=== PATIENT | female | born 1945 | race Hispanic/Latino ===

== ENCOUNTER 2017-06-26 16:44 | Emergency (ER) | payer OTHER, MEDICARE ==
[~2017-06-26 16:44] MED LIST: ASPI-1197 PO; CALC1TAB36 PO; HYDR25TA PO; MULT1TAB70 PO
[2017-06-26] MEDS ORDERED: ACETAMINOPHEN 325 MG TAB ONE (17:44)
== END 2017-06-26 19:07 | disposition home or self-care (01) ==
LOC: EDH 16:44
DX: T62.8X1A Toxic effect of other specified noxious substances eaten as food, accidental (unintentional), initial encounter (principal); R51 Headache; I10 Essential (primary) hypertension; Y92.098 Other place in other non-institutional residence as the place of occurrence of the external cause

== ENCOUNTER → 2017-07-10 | Outpatient (CLI) | payer OTHER, MEDICARE | END | disposition home or self-care (01) | LOC: RAH 09:04 | PROVIDERS: ATTEND Family Medicine | DX: Z12.31 Encounter for screening mammogram for malignant neoplasm of breast (principal) | CPT/HCPCS: 77067 ==

== ENCOUNTER → 2018-06-28 | Outpatient (CLI) | payer OTHER, MEDICARE | END | disposition home or self-care (01) | LOC: RAH 10:38 | PROVIDERS: ATTEND Family Medicine | DX: M51.37 Other intervertebral disc degeneration, lumbosacral region (principal); M47.816 Spondylosis without myelopathy or radiculopathy, lumbar region | CPT/HCPCS: 72100 ==

== ENCOUNTER → 2018-08-06 | Outpatient (CLI) | payer OTHER, MEDICARE | END | disposition home or self-care (01) | LOC: RAH 10:52 | PROVIDERS: ATTEND Family Medicine | DX: M48.061 Spinal stenosis, lumbar region without neurogenic claudication (principal); M47.26 Other spondylosis with radiculopathy, lumbar region | CPT/HCPCS: 72148 ==

== ENCOUNTER → 2018-08-25 | Outpatient (CLI) | payer OTHER, MEDICARE | END | disposition home or self-care (01) | LOC: RAH 12:23 | PROVIDERS: ATTEND Family Medicine | DX: M19.042 Primary osteoarthritis, left hand (principal); W19.XXXA Unspecified fall, initial encounter; Y93.89 Activity, other specified; Y92.89 Other specified places as the place of occurrence of the external cause; Y99.8 Other external cause status | CPT/HCPCS: 71100; 73130 ==

== ENCOUNTER 2019-10-10 08:36 | Inpatient (IN) | payer OTHER, MEDICARE ==
[~2019-10-10] VITALS: Ht 157.5 cm; Wt 76.2 kg
[~2019-10-10 08:36] MED LIST changes: +MULT-660 PO; -MULT1TAB70 PO
[2019-10-10 09:28] LABS: INR 0.96 (0.85-1.15); PARTIAL THROMBOPLASTIN TIME 27.1 SEC (26.3-35.5); PROTHROMBIN TIME 10.4 SEC (9.6-11.6)
[2019-10-10 09:29] LABS: ALBUMIN 4.1 g/dL (3.5-5.0); BILIRUBIN,TOTAL 0.3 mg/dL (0.2-1.0); CREATININE 0.9 mg/dL (0.5-1.5)
[2019-10-10 09:34] LABS: POTASSIUM 2.8 mmol/L (3.5-5.1)
[2019-10-10 09:36] LABS: BASOPHILS % (AUTO) 0.6 % (0.0-5.0); EOSINOPHILS % (AUTO) 1.5 % (0.0-8.0); HEMATOCRIT 39.1 % (36-48); LYMPHOCYTES % (AUTO) 28.7 % (21.0-51.0); MEAN CORPUSCULAR VOLUME 91.4 fL (79-99); MONOCYTES % (AUTO) 7.2 % (3.0-13.0); NEUTROPHILS % (AUTO) 61.8 % (40.0-77.0); PLATELET COUNT (AUTO) 263 K/uL (130-400); RED BLOOD CELL COUNT(AUTO) 4.28 MIL/uL (4.00-5.50); RED CELL DISTRIBUTION WIDTH 11.8 % (11.0-15.5); WHITE BLOOD COUNT (AUTO) 8.2 K/uL (4.8-10.8)
[2019-10-10] MEDS ORDERED: ASPIRIN 325 MG TABLET ONE (09:50)
[2019-10-10] MEDS ORDERED: POTASSIUM BICARB/CIT AC 25 MEQ TABLET.EFF ONE (09:51)
[2019-10-10 10:07] LABS: APPEARANCE,URINE Clear (CLEAR); BILIRUBIN,URINE Negative (NEGATIVE); COLOR,URINE Yellow (YELLOW); GLUCOSE, URINE (UA) Negative (NEGATIVE); KETONES,URINE Negative (NEGATIVE); LEUKOCYTE ESTERASE ,URINE Trace (NEGATIVE); NITRATE,URINE Negative (NEGATIVE); OCCULT BLOOD,URINE Small (NEGATIVE); PROTEIN,URINE Trace mg/dL (NEGATIVE); UROBILINOGEN,URINE 0.2 mg/dL (0.2-1.0)
[2019-10-10 10:16] LABS: AMPHET/METH SCREEN,URINE NEGATIVE (NEGATIVE); BARBITURATE SCREEN, URINE NEGATIVE (NEGATIVE); BENZODIAZEPINES SCREEN,URINE NEGATIVE (NEGATIVE); CANNABINOID SCREEN,URINE NEGATIVE (NEGATIVE); COCAINE SCREEN,URINE NEGATIVE (NEGATIVE); OPIATE SCREEN,URINE NEGATIVE (NEGATIVE); PHENCYCLIDINE SCREEN,URINE NEGATIVE (NEGATIVE)
[2019-10-10 10:30] LABS: BACTERIA,URINE Few /HPF (None Seen); RBC,URINE 0-1 /HPF (0-1); SQUAMOUS EPITHELIAL CELL,UR Rare /HPF (0-2); WBC,URINE 0-1 /HPF (0-1)
[2019-10-10] MEDS ORDERED: LACTULOSE 20 GM/30 ML UDCUP PO PRN (11:15)
[2019-10-10] MEDS ORDERED: ZOLPIDEM TARTRATE 5 MG TAB PO PRN (11:15)
[2019-10-10] MEDS ORDERED: ONDANSETRON HCL 4 MG/2 ML VIAL IV PRN (11:15)
[2019-10-10] MEDS ORDERED: DiphenhydrAMINE HCL 50 MG/ML VIAL IV PRN (11:15)
[2019-10-10] MEDS ORDERED: MAG HYDROX/AL HYDROX/SIMETH ES 30 ML SUSP UDCUP PO PRN (11:15)
[2019-10-10] MEDS ORDERED: NITROGLYCERIN 0.4 MG SL TAB SL PRN (11:15)
[2019-10-10] MEDS ORDERED: MAGNESIUM 2GM PREMIX 50ML 50 ML IV PRN (11:15)
[2019-10-10] MEDS ORDERED: DIPHENHYDRAMINE HCL 25 MG CAPSULE PO PRN (11:15)
[2019-10-10] MEDS ORDERED: LORAZEPAM 2 MG/ML 1 ML VIAL IVP PRN (11:15)
[2019-10-10] MEDS ORDERED: POTASSIUM CHLORIDE 20MEQ/100ML 100 ML IV PRN ×2 (11:15→15:00)
[2019-10-10] MEDS ORDERED: MORPHINE SULFATE 2 MG/ML 1ML SYG IV PRN (11:15)
[2019-10-10] MEDS ORDERED: ACETAMINOPHEN 325 MG TAB PO PRN ×2 (11:15)
[2019-10-10] MEDS ORDERED: HYDRALAZINE HCL 20 MG/ML VIAL IV PRN (11:15)
[2019-10-10] MEDS ORDERED: GUAIFENESIN-DM 200/20 MG 10 ML PO PRN (11:15)
[2019-10-10] MEDS ORDERED: LIDOCAINE HCL-MPF 1% 2ML VIAL IV PRN ×2 (11:15→15:00)
[2019-10-10] MEDS: SODIUM CHLORIDE 0.9% 1000ML 1,000 ML IV SCH (11:30)
--- NOTE | 2019-10-10 11:50 | NUR ---
DYSPHAGIA EVAL COMPLETED. NO S/S OF ASPIRATION. RECOMMEND REGULAR SOLIDS, THIN LIQUIDS, PILLS WHOLE WITH LIQUIDS. FAST FOOD TEAM MEMBER COORDINATED CARE AND RECOMMENDATIONS WITH NURSE AIDA. Addendum: 10/10/[address] [facility]ERRE POE Amended: Links added.
[2019-10-10 12:23] VITALS: BP 158/84
[2019-10-10 14:46] LABS: MAGNESIUM 1.9 mg/dL (1.80-2.40); POTASSIUM 3.4 mmol/L (3.5-5.1)
[2019-10-10] MEDS ORDERED: POTASSIUM CHLORIDE 10% ELIXIR 20 MEQ/15 ML UDCUP PO PRN (15:00)
[2019-10-10 15:42] VITALS: BP 148/86
[2019-10-10] MEDS: POTASSIUM CHLORIDE 20 MEQ ERTAB PO PRN ×2 (17:08→20:01)
[2019-10-10 19:53] VITALS: BP 134/78
[2019-10-10] MEDS: FAMOTIDINE 20MG TAB 20 MG TAB PO NR (19:54)
[2019-10-10] MEDS: FAMOTIDINE/PF 20 MG/2 ML VIAL IV SCH (21:00)
[2019-10-10 23:43] VITALS: BP 138/71
[2019-10-11] MEDS: SODIUM CHLORIDE 0.9% 1000ML 1,000 ML IV SCH (00:21)
[2019-10-11 03:59] VITALS: BP 106/57
[2019-10-11 05:31] LABS: BASOPHILS % (AUTO) 0.8 % (0.0-5.0); EOSINOPHILS % (AUTO) 2.3 % (0.0-8.0); HEMATOCRIT 38.2 % (36-48); LYMPHOCYTES % (AUTO) 32.2 % (21.0-51.0); MEAN CORPUSCULAR HEMOGLOBIN 31.1 pg (27.0-33.0); MEAN CORPUSCULAR HGB CONC 33.5 g/dL (32.0-36.0); MEAN CORPUSCULAR VOLUME 92.7 fL (79-99); MONOCYTES % (AUTO) 8.2 % (3.0-13.0); NEUTROPHILS % (AUTO) 56.2 % (40.0-77.0); PLATELET COUNT (AUTO) 256 K/uL (130-400); RED BLOOD CELL COUNT(AUTO) 4.12 MIL/uL (4.00-5.50); RED CELL DISTRIBUTION WIDTH 11.9 % (11.0-15.5); WHITE BLOOD COUNT (AUTO) 7.7 K/uL (4.8-10.8)
[2019-10-11 05:59] LABS: ALBUMIN 3.6 g/dL (3.5-5.0); BILIRUBIN,TOTAL 0.4 mg/dL (0.2-1.0); CREATININE 0.8 mg/dL (0.5-1.5); MAGNESIUM 1.9 mg/dL (1.80-2.40); POTASSIUM 4.3 mmol/L (3.5-5.1); THYROID STIMULATING HORMONE 2.99 uIU/mL (0.36-3.74); TOTAL PROTEIN, SERUM 7.1 g/dL (6.0-8.3)
[2019-10-11 06:23] LABS: HEMOGLOBIN A1C 5.9 % (4.0-6.0)
--- NOTE | 2019-10-11 07:30 | NUR ---
NOTE AAOX3. DENIES PAIN OR DISCOMFORT. NO NUMBNESS OR TINGLING REPORTED. NO ASYMMETRICAL WEAKNESS REPORTED OR NOTED. SHE CAME IN WITH C/O LEFT ARM NUMBNESS AND SHE HAS H/O TIA. SHE IS PENDING RESULTS FROM 2D ECHO AND ALSO CT ANGIOGRAM HEAD AND NECK. PENDING DR HALEY CONSULT WELL.
[2019-10-11 07:33] VITALS: BP 139/81
[2019-10-11] MEDS ORDERED: IOHEXOL-350 75 ML VIAL IV ONE (08:02)
[2019-10-11] MEDS: FAMOTIDINE/PF 20 MG/2 ML VIAL IV SCH (08:26)
[2019-10-11] MEDS: FAMOTIDINE 20MG TAB 20 MG TAB PO NR (08:43)
[2019-10-11] MEDS ORDERED: ASPIRIN 81MG TAB.CHEW PO SCH (09:00)
[2019-10-11] MEDS ORDERED: ASPIRIN 325 MG TABLET PO SCH (09:00)
--- NOTE | 2019-10-11 10:55 | NUR ---
FOLLOW UP COMPLETED Pt TOLERATING DIET RECOMMENDATION WITH NO S/S OF ASPIRATION. GLAZE HANDLER COORDINATED WITH NURSE GRAY. Addendum: 10/11/[address] [facility] Amended: Links added.
[2019-10-11 11:05] VITALS: BP 133/74
--- NOTE | 2019-10-11 11:20 | NUR ---
note DR HALEY SAW THE PATIENT FOR CONSULT REGARDING EFT ARM NUMBNESS AND HE GAVE RECOMMENDATIONS TO HAVE CARDIOLOGY CONSULT DUE TO ABNORMAL RESULTS FROM 2D ECHO.
--- NOTE | 2019-10-11 12:10 | NUR ---
NOTE ANGEL WITH DR GRIGSBY CAME IN FOR THE CONSULT. PATIENT HAS SEEN DR GRIGSBY IN THE PAST. SHE REMAINS ASYMPTOMATIC. THERE IS RECOMMENDATIONS FOR MEDICAL MANAGEMENT AND CONSULT WITH DR ZIMMERMAN UPON DISCHARGE BUT FIRST HEAR RECOMMENDATIONS FROM CARDIOLOGY REGARDING ATRIAL SEPTAL ANEURYSM AND PFO.
--- NOTE | 2019-10-11 14:37 | NUR ---
CM NOTE/IA MEET WITH PATIENT IN ROOM. PER PATIENT, LIVES ALONE, INDEPENDENT WITH ADLS, HAS WALKER AND WHEELCHAIR IN USE, HAS PROVIDER 3HR PER DAY AND FEELS SAFE TO RETURN HOME ONCE DISCHARGED FROM HOSPITAL. Addendum: 10/11/19 at 1447 by TRACEE MABRY RN CM Amended: Links added.
[2019-10-11 15:54] VITALS: BP 152/82
--- NOTE | 2019-10-11 16:29 | NUR ---
[id number] patient signed IM Letter, I faxed IM Letter to [phone] and placed in chart under consent tab.
--- NOTE | 2019-10-11 17:30 | NUR ---
NOTE DISCHARGE INSTRUCTIONS GIVEN TO PATIENT AT THIS TIME. SHE VERBALIZED UNDERSTANDING. I ALSO SPOKE TO DAUGHTER ON TELEPHONE AND EXPLAINED WHAT DOCTORS EXPLAINED O HER WAS THE PROBLEM AD WHAT THE PLAN IS FOR WHEN SHE LEAVES.
[2019-10-11] MEDS ORDERED: ATORVASTATIN CALCIUM 20 MG TABLET PO SCH (21:00)
[2019-10-11] MEDS ORDERED: APIXABAN 5 MG TABLET PO SCH (21:00)
== END 2019-10-11 17:40 | disposition home or self-care (01) | DRG 69 ==
LOC: EDH 08:36 → EDHIP 11:01 → 3BH 11:58
PROVIDERS: ADMIT Internal Medicine; ATTEND Internal Medicine
DX: G45.9 Transient cerebral ischemic attack, unspecified (principal); Q21.1 Atrial septal defect; I25.3 Aneurysm of heart; I10 Essential (primary) hypertension; R29.702 NIHSS score 2; Z91.14 Patient's other noncompliance with medication regimen; I73.9 Peripheral vascular disease, unspecified; Z86.73 Personal history of transient ischemic attack (TIA), and cerebral infarction without residual deficits; Z90.49 Acquired absence of other specified parts of digestive tract; Z82.3 Family history of stroke; Z88.8 Allergy status to other drugs, medicaments and biological substances
CPT/HCPCS: 36415; 70450; 70496; 70498; 70551; 71045; 80053; 80061; 80305; 81001; 82140; 82550; 82948; 83036; 83721; 83735; 84132; 84439; 84443; 84480; 84484; 85025; 85610; 85651; 85730; 86140; 92610; 93005; 93306; 93356; 93880; G0378; Q9967

== ENCOUNTER 2019-10-21 14:23 | Emergency (ER) | payer OTHER, MEDICARE ==
[2019-10-21] MEDS ORDERED: DEXAMETHASONE SOD PHOSPHATE 4 MG/ML 1ML VIAL ONE (15:57)
[2019-10-21] MEDS ORDERED: LIDOCAINE 5% TOPICAL PATCH TP ONE (15:57)
== END 2019-10-21 16:37 | disposition home or self-care (01) ==
LOC: EDH 14:23
DX: M25.561 Pain in right knee (principal); M17.11 Unilateral primary osteoarthritis, right knee; I10 Essential (primary) hypertension; Z90.49 Acquired absence of other specified parts of digestive tract
CPT/HCPCS: 73562; 96372; 99283; J1100

== ENCOUNTER → 2020-04-23 | Outpatient (CLI) | payer OTHER, MEDICARE | END | disposition home or self-care (01) | LOC: RAH 09:41 | PROVIDERS: ATTEND Family Medicine | DX: Z12.31 Encounter for screening mammogram for malignant neoplasm of breast (principal) | CPT/HCPCS: 77067 ==

== ENCOUNTER → 2020-08-27 | Outpatient (CLI) | payer OTHER, MEDICARE | END | disposition home or self-care (01) | LOC: RAH 08:29 | PROVIDERS: ATTEND Internal Medicine Cardiovascular Disease | DX: I25.10 Atherosclerotic heart disease of native coronary artery without angina pectoris (principal) | CPT/HCPCS: 93306; 93356 ==

== ENCOUNTER → 2021-01-04 | Outpatient (CLI) | payer OTHER, MEDICARE | END | disposition home or self-care (01) | LOC: LAB 11:05 | PROVIDERS: ATTEND Family Medicine | DX: K59.00 Constipation, unspecified (principal) | CPT/HCPCS: 74018 ==

== ENCOUNTER → 2021-01-17 | Outpatient (CLI) | payer OTHER, MEDICARE | END | disposition home or self-care (01) | LOC: RAH 09:28 | PROVIDERS: ATTEND Family Medicine | DX: R31.9 Hematuria, unspecified (principal) | CPT/HCPCS: 76770 ==

== ENCOUNTER 2021-08-06 12:14 | Observation (INO) | payer OTHER, MEDICARE ==
[~2021-08-06] VITALS: Ht 152.4 cm; Wt 73.8 kg
[2021-08-06 12:53] LABS: BASOPHILS % (AUTO) 0.7 % (0.0-5.0); EOSINOPHILS % (AUTO) 1.3 % (0.0-8.0); LYMPHOCYTES % (AUTO) 38.8 % (21.0-51.0); MEAN CORPUSCULAR HEMOGLOBIN 33.6 pg (27.0-33.0); MEAN CORPUSCULAR HGB CONC 34.9 g/dL (32.0-36.0); MEAN CORPUSCULAR VOLUME 96.3 fL (79-99); MONOCYTES % (AUTO) 8.1 % (3.0-13.0); NEUTROPHILS % (AUTO) 50.8 % (40.0-77.0); PLATELET COUNT (AUTO) 258 K/uL (130-400); RED BLOOD CELL COUNT(AUTO) 4.05 MIL/uL (4.00-5.50); RED CELL DISTRIBUTION WIDTH 12.6 % (11.0-15.5); WHITE BLOOD COUNT (AUTO) 9.1 K/uL (4.8-10.8)
[2021-08-06 13:06] LABS: CREATININE 0.9 mg/dL (0.5-1.5)
[2021-08-06 13:16] LABS: ALBUMIN 3.9 g/dL (3.5-5.0); BILIRUBIN,TOTAL 0.4 mg/dL (0.2-1.0); TOTAL PROTEIN, SERUM 7.9 g/dL (6.0-8.3)
[2021-08-06 14:00] LABS: APPEARANCE,URINE CLEAR (CLEAR); BILIRUBIN,URINE NEGATIVE (NEGATIVE); COLOR,URINE YELLOW (YELLOW); GLUCOSE, URINE (UA) NEGATIVE (NEGATIVE); KETONES,URINE NEGATIVE (NEGATIVE); LEUKOCYTE ESTERASE ,URINE NEGATIVE (NEGATIVE); NITRATE,URINE NEGATIVE (NEGATIVE); OCCULT BLOOD,URINE TRACE-INTACT (NEGATIVE); PH,URINE 6.5 (5.0-8.0); PROTEIN,URINE NEGATIVE (NEGATIVE); UROBILINOGEN,URINE 0.2 mg/dL (0.2-1.0)
[2021-08-06] MEDS ORDERED: LORAZEPAM 2 MG/ML 1 ML VIAL IVP ONE (14:00)
[2021-08-06] MEDS ORDERED: 0.9%NACL 1000ML 1,000 ML IV ONE (14:00)
[2021-08-06 14:04] LABS: BACTERIA,URINE Rare /HPF (None Seen); RBC,URINE 0-1 /HPF (0-1); SQUAMOUS EPITHELIAL CELL,UR 0-2 /HPF (0-2); WBC,URINE 0-1 /HPF (0-1)
[2021-08-06] MEDS ORDERED: POTASSIUM CHLORIDE 10% ELIXIR 20 MEQ/15 ML UDCUP PO ONE (14:30)
[2021-08-06] MEDS ORDERED: ASPIRIN 81MG CHEW TAB PO ONE (15:00)
[2021-08-06] MEDS ORDERED: POTASSIUM CHLORIDE 10% ELIXIR 20 MEQ/15 ML UDCUP PO PRN (15:30)
[2021-08-06] MEDS ORDERED: KCL 20 MEQ ERTAB PO PRN (15:30)
[2021-08-06] MEDS ORDERED: ONDANSETRON 4MG INJ IVP PRN (15:30)
[2021-08-06] MEDS ORDERED: LIDOCAINE HCL-MPF 1% 2ML VIAL IV PRN ×2 (15:30)
[2021-08-06] MEDS ORDERED: CLONIDINE HCL 0.1 MG TABLET PO PRN (15:30)
[2021-08-06] MEDS ORDERED: ACETAMINOPHEN 325 MG TAB PO PRN (15:30)
[2021-08-06] MEDS ORDERED: LACTULOSE 20 GM/30 ML UDCUP PO PRN (15:30)
[2021-08-06] MEDS ORDERED: POTASSIUM CHLORIDE 20MEQ/100ML 100 ML IV PRN ×2 (15:30)
[2021-08-06] MEDS ORDERED: ASPIRIN 325MG TAB PO ONE (15:30)
[2021-08-06] MEDS ORDERED: TEMAZEPAM 15 MG CAPSULE PO PRN (15:30)
[2021-08-06] MEDS ORDERED: DEXTROSE 50%-WATER 50 ML DISP.SYRIN IV PRN (15:30)
[2021-08-06] MEDS ORDERED: ACETAMINOPHEN 650 MG SUPPOSITORY RC PRN (15:30)
[2021-08-06] MEDS ORDERED: MORPHINE 2 MG SYG IVP PRN (15:30)
[2021-08-06] MEDS ORDERED: GLUCAGON 1MG KIT 1 MG ML IM PRN (15:30)
[2021-08-06] MEDS ORDERED: HYDRALAZINE 20MG/ML VIAL IV PRN (15:30)
[2021-08-06] MEDS: INSULIN HUMULIN R 100 UNIT/ML 3ML SQ SCH ×2 (16:30→20:51)
[2021-08-06] MEDS ORDERED: MULTIVITAMIN TABLET PO SCH (19:00)
[2021-08-06] MEDS ORDERED: DOCUSATE SODIUM 100 MG CAP PO PRN (19:00)
[2021-08-06] MEDS: CALCIUM CARB PO SCH (21:00)
[2021-08-06] MEDS: LACT PO SCH (21:00)
[2021-08-06] MEDS: VITAMIN D3 PO SCH (21:00)
[2021-08-06] MEDS: SIMVASTATIN 20 MG TABLET PO SCH (21:23)
[2021-08-06 21:48] LABS: CREATINE KINASE, TOTAL 88 U/L (21-232); MYOGLOBIN 55 ng/mL (10-92)
[2021-08-07 05:05] VITALS: BP 153/83
[2021-08-07 05:52] LABS: BASOPHILS % (AUTO) 0.5 % (0.0-5.0); EOSINOPHILS % (AUTO) 1.9 % (0.0-8.0); HEMATOCRIT 40.2 % (36-48); LYMPHOCYTES % (AUTO) 27.8 % (21.0-51.0); MEAN CORPUSCULAR HEMOGLOBIN 33.5 pg (27.0-33.0); MEAN CORPUSCULAR HGB CONC 34.1 g/dL (32.0-36.0); MEAN CORPUSCULAR VOLUME 98.3 fL (79-99); MONOCYTES % (AUTO) 7.6 % (3.0-13.0); NEUTROPHILS % (AUTO) 61.9 % (40.0-77.0); PLATELET COUNT (AUTO) 229 K/uL (130-400); RED BLOOD CELL COUNT(AUTO) 4.09 MIL/uL (4.00-5.50); RED CELL DISTRIBUTION WIDTH 12.8 % (11.0-15.5); WHITE BLOOD COUNT (AUTO) 8.8 K/uL (4.8-10.8)
[2021-08-07 06:16] LABS: B-TYPE NATRIURETIC PEPTIDE 103 pg/mL (0-100)
[2021-08-07 06:17] LABS: CREATININE 0.7 mg/dL (0.5-1.5); MAGNESIUM 1.9 mg/dL (1.80-2.40); PHOSPHORUS 3.2 mg/dL (2.5-4.9); POTASSIUM 3.8 mmol/L (3.5-5.1); THYROID STIMULATING HORMONE 3.55 uIU/mL (0.36-3.74)
[2021-08-07] MEDS: INSULIN HUMULIN R 100 UNIT/ML 3ML SQ SCH ×4 (06:28→20:14)
[2021-08-07 08:00] VITALS: BP 140/73
[2021-08-07] MEDS: LACT PO SCH ×2 (09:00→20:14)
[2021-08-07] MEDS: CALCIUM CARB PO SCH ×2 (09:00→20:14)
[2021-08-07] MEDS: ENOXAPARIN SODIUM 40 MG/0.4 ML SYRINGE SQ SCH (09:00)
[2021-08-07] MEDS: VITAMIN D3 PO SCH ×2 (09:00→20:14)
[2021-08-07] MEDS: PANTOPRAZOLE 40 MG TAB DR PO SCH (09:00)
[2021-08-07] MEDS: HYDROCHLOROTHIAZIDE 25 MG TABLET PO SCH (09:39)
[2021-08-07] MEDS: ASPIRIN 81MG CHEW TAB PO SCH (09:41)
[2021-08-07 12:00] VITALS: BP 154/81
[2021-08-07 15:52] VITALS: BP 165/79
[2021-08-07 17:09] LABS: HEMOGLOBIN A1C 5.8 % (4.0-6.0)
[2021-08-07] MEDS: METOPROLOL SUCCINATE 50 MG TAB.SR.24H PO SCH (18:48)
[2021-08-07 20:08] VITALS: BP 165/81
[2021-08-07] MEDS: SIMVASTATIN 20 MG TABLET PO SCH (20:13)
[2021-08-07 23:54] VITALS: BP 124/68
[2021-08-08 04:08] VITALS: BP 142/77
[2021-08-08] MEDS: INSULIN HUMULIN R 100 UNIT/ML 3ML SQ SCH ×2 (06:16→11:30)
[2021-08-08 08:18] VITALS: BP 155/80
[2021-08-08] MEDS: ENOXAPARIN SODIUM 40 MG/0.4 ML SYRINGE SQ SCH (08:30)
[2021-08-08] MEDS: PANTOPRAZOLE 40 MG TAB DR PO SCH (08:30)
[2021-08-08] MEDS: CALCIUM CARB PO SCH (09:00)
[2021-08-08] MEDS: VITAMIN D3 PO SCH (09:00)
[2021-08-08] MEDS: LACT PO SCH (09:00)
[2021-08-08] MEDS ORDERED: LOSARTAN 25 MG TABLET PO SCH (09:00)
[2021-08-08] MEDS: METOPROLOL SUCCINATE 50 MG TAB.SR.24H PO SCH (09:55)
[2021-08-08] MEDS: HYDROCHLOROTHIAZIDE 25 MG TABLET PO SCH (09:55)
[2021-08-08] MEDS: ASPIRIN 81MG CHEW TAB PO SCH (09:56)
[2021-08-08 12:05] VITALS: BP 133/72
== END 2021-08-08 13:15 | disposition home or self-care (01) ==
LOC: EDH 12:14 → EDHIP 15:22 → 4AH 08-07 05:08
PROVIDERS: ADMIT Internal Medicine Critical Care Medicine; ATTEND Internal Medicine Critical Care Medicine
DX: I16.0 Hypertensive urgency (principal); Z20.822 Contact with and (suspected) exposure to COVID-19; I16.1 Hypertensive emergency; I10 Essential (primary) hypertension; R41.3 Other amnesia; Q21.1 Atrial septal defect; E66.9 Obesity, unspecified; E78.5 Hyperlipidemia, unspecified; I45.10 Unspecified right bundle-branch block; I48.92 Unspecified atrial flutter; G93.89 Other specified disorders of brain; R79.89 Other specified abnormal findings of blood chemistry; R42 Dizziness and giddiness; Z79.82 Long term (current) use of aspirin; Z91.19 Patient's noncompliance with other medical treatment and regimen; Z86.73 Personal history of transient ischemic attack (TIA), and cerebral infarction without residual deficits; Z79.899 Other long term (current) drug therapy
CPT/HCPCS: 36415 ×2; 70450; 70551; 80048; 80053; 80061; 81001; 82550 ×3; 82948 ×6; 83036; 83735; 83874 ×3; 83880; 84100; 84443; 84484 ×4; 85025 ×2; 87635; 92610; 93005; 93306; 93880; 96360; 97161; 99285; G0378 ×43; J2060; J1650

== ENCOUNTER 2021-09-06 11:18 | Emergency (ER) | payer OTHER, MEDICARE ==
[~2021-09-06] VITALS: Ht 144.8 cm; Wt 63.5 kg
[2021-09-06 11:52] LABS: BASOPHILS % (AUTO) 0.4 % (0.0-5.0); EOSINOPHILS % (AUTO) 0.8 % (0.0-8.0); HEMATOCRIT 38.8 % (36-48); LYMPHOCYTES % (AUTO) 15.5 % (21.0-51.0); MEAN CORPUSCULAR HEMOGLOBIN 33.4 pg (27.0-33.0); MEAN CORPUSCULAR HGB CONC 34.5 g/dL (32.0-36.0); MEAN CORPUSCULAR VOLUME 96.8 fL (79-99); MONOCYTES % (AUTO) 5.3 % (3.0-13.0); NEUTROPHILS % (AUTO) 77.7 % (40.0-77.0); PLATELET COUNT (AUTO) 223 K/uL (130-400); RED BLOOD CELL COUNT(AUTO) 4.01 MIL/uL (4.00-5.50); RED CELL DISTRIBUTION WIDTH 12.7 % (11.0-15.5); WHITE BLOOD COUNT (AUTO) 10.3 K/uL (4.8-10.8)
[2021-09-06 12:00] LABS: CREATININE 0.9 mg/dL (0.5-1.5); POTASSIUM 3.7 mmol/L (3.5-5.1)
[2021-09-06 12:07] LABS: ALBUMIN 3.9 g/dL (3.5-5.0); BILIRUBIN,TOTAL 0.5 mg/dL (0.2-1.0); TOTAL PROTEIN, SERUM 7.9 g/dL (6.0-8.3)
[2021-09-06 12:10] LABS: APPEARANCE,URINE Clear (CLEAR); BILIRUBIN,URINE Negative (NEGATIVE); COLOR,URINE Yellow (YELLOW); GLUCOSE, URINE (UA) Negative (NEGATIVE); KETONES,URINE Negative (NEGATIVE); LEUKOCYTE ESTERASE ,URINE Negative (NEGATIVE); NITRATE,URINE Negative (NEGATIVE); OCCULT BLOOD,URINE Nonhemolyzed Trace (NEGATIVE); PROTEIN,URINE POS 2+ mg/dL (NEGATIVE); UROBILINOGEN,URINE 0.2 mg/dL (0.2-1.0)
[2021-09-06 12:30] LABS: BACTERIA,URINE Few /HPF (None Seen); SQUAMOUS EPITHELIAL CELL,UR 0-2 /HPF (0-2); WBC,URINE 0-1 /HPF (0-1)
[2021-09-06 15:42] VITALS: BP 135/56
== END 2021-09-06 15:46 | disposition home or self-care (01) ==
LOC: EDH 11:18
DX: R07.89 Other chest pain (principal); R77.8 Other specified abnormalities of plasma proteins; R11.0 Nausea; E78.00 Pure hypercholesterolemia, unspecified; I11.9 Hypertensive heart disease without heart failure; K21.9 Gastro-esophageal reflux disease without esophagitis; M19.90 Unspecified osteoarthritis, unspecified site; Z79.82 Long term (current) use of aspirin; Z88.5 Allergy status to narcotic agent; Z88.8 Allergy status to other drugs, medicaments and biological substances; Z90.49 Acquired absence of other specified parts of digestive tract
CPT/HCPCS: 36415; 71045; 74018; 80053; 81001; 83690; 84484; 85025; 93005

== ENCOUNTER 2022-02-05 15:38 | Observation (INO) | payer OTHER, MEDICARE ==
[~2022-02-05] VITALS: Ht 152.4 cm; Wt 73.4 kg
[2022-02-05 16:38] LABS: BASOPHILS % (AUTO) 0.7 % (0.0-5.0); HEMATOCRIT 38.1 % (36-48); LYMPHOCYTES % (AUTO) 31.1 % (21.0-51.0); MEAN CORPUSCULAR HEMOGLOBIN 33.8 pg (27.0-33.0); MEAN CORPUSCULAR HGB CONC 35.2 g/dL (32.0-36.0); MEAN CORPUSCULAR VOLUME 96.2 fL (79-99); MONOCYTES % (AUTO) 7.2 % (3.0-13.0); NEUTROPHILS % (AUTO) 58.7 % (40.0-77.0); PLATELET COUNT (AUTO) 249 K/uL (130-400); RED BLOOD CELL COUNT(AUTO) 3.96 MIL/uL (4.00-5.50); RED CELL DISTRIBUTION WIDTH 13.8 % (11.0-15.5); WHITE BLOOD COUNT (AUTO) 8.9 K/uL (4.8-10.8)
[2022-02-05] MEDS ORDERED: PANTOPRAZOLE 40 MG/VIAL IVP STA (16:46)
[2022-02-05 16:50] LABS: APPEARANCE,URINE CLEAR (CLEAR); BILIRUBIN,URINE NEGATIVE (NEGATIVE); COLOR,URINE YELLOW (YELLOW); GLUCOSE, URINE (UA) NEGATIVE (NEGATIVE); KETONES,URINE NEGATIVE (NEGATIVE); LEUKOCYTE ESTERASE ,URINE TRACE (NEGATIVE); NITRATE,URINE NEGATIVE (NEGATIVE); OCCULT BLOOD,URINE SMALL (NEGATIVE); PROTEIN,URINE 30 mg/dL (NEGATIVE); UROBILINOGEN,URINE 0.2 mg/dL (0.2-1.0)
[2022-02-05 17:06] LABS: BACTERIA,URINE Few /HPF (None Seen); SQUAMOUS EPITHELIAL CELL,UR Few /HPF (0-2)
[2022-02-05] MEDS ORDERED: ASPIRIN 325MG EC TAB PO STA (17:18)
[2022-02-05 17:20] LABS: CREATININE 0.9 mg/dL (0.5-1.5); POTASSIUM 3.3 mmol/L (3.5-5.1)
[2022-02-05 17:30] LABS: ALBUMIN 3.8 g/dL (3.5-5.0); TOTAL PROTEIN, SERUM 7.6 g/dL (6.0-8.3)
[2022-02-05] MEDS ORDERED: ARTIFICAL TEARS SOL 15 ML OU PRN (18:30)
[2022-02-05] MEDS ORDERED: TEMAZEPAM 15 MG CAPSULE PO PRN (18:30)
[2022-02-05] MEDS ORDERED: DOCUSATE SODIUM 100 MG CAP PO PRN (18:30)
[2022-02-05] MEDS ORDERED: HYDRALAZINE 20MG/ML VIAL IV PRN (18:30)
[2022-02-05] MEDS ORDERED: ACETAMINOPHEN 650 MG SUPPOSITORY RC PRN (18:30)
[2022-02-05] MEDS ORDERED: ONDANSETRON 4MG INJ IVP PRN (18:30)
[2022-02-05] MEDS ORDERED: HYDROCODONE/ACETAMINOPHEN 5/325 MG TAB PO PRN (18:30)
[2022-02-05] MEDS ORDERED: LACTULOSE 20 GM/30 ML UDCUP PO PRN (18:30)
[2022-02-05] MEDS ORDERED: MORPHINE 2 MG SYG IVP PRN (19:00)
[2022-02-05] MEDS: INSULIN HUMULIN R 100 UNIT/ML 3ML SQ SCH (21:00)
[2022-02-05] MEDS ORDERED: IOHEXOL 350 MG/ML 100ML INFUS..BTL IV ONE (21:01)
[2022-02-06] VITALS (7 sets, daily range): BP systolic 117–151; BP diastolic 63–98
[2022-02-06] MEDS: INSULIN HUMULIN R 100 UNIT/ML 3ML SQ SCH ×4 (07:30→20:48)
[2022-02-06 07:40] LABS: BASOPHILS % (AUTO) 0.6 % (0.0-5.0); EOSINOPHILS % (AUTO) 2.7 % (0.0-8.0); HEMATOCRIT 39.4 % (36-48); LYMPHOCYTES % (AUTO) 23.1 % (21.0-51.0); MEAN CORPUSCULAR HEMOGLOBIN 33.8 pg (27.0-33.0); MEAN CORPUSCULAR VOLUME 96.6 fL (79-99); NEUTROPHILS % (AUTO) 64.2 % (40.0-77.0); PLATELET COUNT (AUTO) 238 K/uL (130-400); RED BLOOD CELL COUNT(AUTO) 4.08 MIL/uL (4.00-5.50); RED CELL DISTRIBUTION WIDTH 13.9 % (11.0-15.5); WHITE BLOOD COUNT (AUTO) 8.1 K/uL (4.8-10.8)
[2022-02-06] MEDS: PANTOPRAZOLE 40 MG TAB DR PO SCH (08:13)
[2022-02-06] MEDS: ASPIRIN 81MG CHEW TAB PO SCH (08:16)
[2022-02-06] MEDS: ENOXAPARIN SODIUM 30 MG/0.3 ML SQ SCH (08:16)
[2022-02-06 08:29] LABS: MAGNESIUM 2.1 mg/dL (1.80-2.40); PHOSPHORUS 4.3 mg/dL (2.5-4.9); POTASSIUM 3.5 mmol/L (3.5-5.1); THYROID STIMULATING HORMONE 3.42 uIU/mL (0.36-3.74)
[2022-02-06] MEDS ORDERED: ZOSYN 3.375GM +NS 50ML IV SCH (10:30)
[2022-02-06 10:53] LABS: THYROID STIMULATING HORMONE 2.13 uIU/mL (0.36-3.74)
[2022-02-06 10:56] LABS: CRP QUANTITATIVE < 2.00 mg/L (0.00-9.0)
[2022-02-06] MEDS: ACETAMINOPHEN 325 MG TAB PO PRN (19:02)
[2022-02-06] MEDS: ZOSYN 3.375GM +NS 50ML IV SCH (20:32)
[2022-02-06] MEDS: LISINOPRIL 10 MG TABLET PO SCH (20:48)
[2022-02-07 03:28] VITALS: BP 142/90
[2022-02-07] MEDS: ZOSYN 3.375GM +NS 50ML IV SCH (05:28)
[2022-02-07 05:43] LABS: BASOPHILS % (AUTO) 0.7 % (0.0-5.0); EOSINOPHILS % (AUTO) 2.8 % (0.0-8.0); HEMATOCRIT 38.1 % (36-48); LYMPHOCYTES % (AUTO) 17.2 % (21.0-51.0); MEAN CORPUSCULAR HEMOGLOBIN 33.2 pg (27.0-33.0); MEAN CORPUSCULAR HGB CONC 34.1 g/dL (32.0-36.0); MEAN CORPUSCULAR VOLUME 97.4 fL (79-99); MONOCYTES % (AUTO) 9.7 % (3.0-13.0); NEUTROPHILS % (AUTO) 69.3 % (40.0-77.0); PLATELET COUNT (AUTO) 232 K/uL (130-400); RED BLOOD CELL COUNT(AUTO) 3.91 MIL/uL (4.00-5.50)
[2022-02-07 06:12] LABS: ALBUMIN 3.5 g/dL (3.5-5.0); CREATININE 0.9 mg/dL (0.5-1.5); POTASSIUM 3.4 mmol/L (3.5-5.1); TOTAL PROTEIN, SERUM 7.3 g/dL (6.0-8.3)
[2022-02-07] MEDS: INSULIN HUMULIN R 100 UNIT/ML 3ML SQ SCH (07:30)
[2022-02-07 08:00] VITALS: BP 162/89
[2022-02-07] MEDS ORDERED: METO-408 PO (08:13)
[2022-02-07] MEDS ORDERED: ROSU10TA28 PO (08:13)
[2022-02-07] MEDS ORDERED: NITR0.4T SL (08:13)
[2022-02-07] MEDS: ACETAMINOPHEN 325 MG TAB PO PRN (09:23)
[2022-02-07] MEDS: ASPIRIN 81MG CHEW TAB PO SCH (09:24)
[2022-02-07] MEDS: ENOXAPARIN SODIUM 30 MG/0.3 ML SQ SCH (09:25)
[2022-02-07] MEDS: PANTOPRAZOLE 40 MG TAB DR PO SCH (09:25)
[2022-02-07] MEDS: LISINOPRIL 10 MG TABLET PO SCH (09:27)
[2022-02-07] MEDS ORDERED: LISI20TA24 PO (11:38)
[2022-02-07 12:00] VITALS: BP 161/79
== END 2022-02-07 14:00 | disposition home or self-care (01) ==
LOC: EDH 15:38 → EDHIP 18:17 → 3CH 23:12
PROVIDERS: ADMIT Internal Medicine Critical Care Medicine; ATTEND Internal Medicine Critical Care Medicine
DX: R07.89 Other chest pain (principal); Z20.822 Contact with and (suspected) exposure to COVID-19; I25.10 Atherosclerotic heart disease of native coronary artery without angina pectoris; E87.1 Hypo-osmolality and hyponatremia; K21.9 Gastro-esophageal reflux disease without esophagitis; M19.90 Unspecified osteoarthritis, unspecified site; E78.5 Hyperlipidemia, unspecified; E78.00 Pure hypercholesterolemia, unspecified; I12.9 Hypertensive chronic kidney disease with stage 1 through stage 4 chronic kidney disease, or unspecified chronic kidney disease; N18.31 Chronic kidney disease, stage 3a; F41.9 Anxiety disorder, unspecified; I45.10 Unspecified right bundle-branch block; I51.7 Cardiomegaly; Z90.49 Acquired absence of other specified parts of digestive tract; Z79.899 Other long term (current) drug therapy
CPT/HCPCS: 96375; 99285; 82550 ×3; 83874 ×3; 84484 ×6; 80053 ×2; 83880; 85025 ×3; 85378; 87804 ×2; 82948 ×2; 81001; 36415 ×3; 87635; 71045; 71275; 93005 ×2; 84145; 96372 ×2; 96365; 96366 ×2; 84443 ×2; 83735 ×2; 84100; 80048; 86140; G0378 ×44; C9113; Q9967; J1650 ×2; J2543 ×3

== ENCOUNTER → 2023-02-04 | Outpatient (CLI) | payer OTHER ==
[~2023-02-04] MED LIST changes: -ASPI-1197 PO; -CALC1TAB36 PO; +COLC0.6C3 PO; +DONE5TAB33 PO; +LISI5TAB21 PO; +MEMA5TAB42 PO; +MEMA5TAB7 PO; +METO-408 PO; -MULT-660 PO; +NITR0.4T50 SL; +ROSU10TA28 PO; +TOLT4CAP27 PO
== END | disposition home or self-care (01) ==
LOC: RAH 08:06
PROVIDERS: ATTEND Internal Medicine Cardiovascular Disease
DX: Z13.6 Encounter for screening for cardiovascular disorders (principal)
CPT/HCPCS: 75571

== ENCOUNTER → 2023-07-10 | Outpatient (CLI) | payer OTHER, MEDICARE | END | disposition home or self-care (01) | LOC: RAH 09:13 | PROVIDERS: ATTEND Family Medicine | DX: Z12.31 Encounter for screening mammogram for malignant neoplasm of breast (principal) | CPT/HCPCS: 77067 ==

== ENCOUNTER 2024-10-24 08:09 | Emergency (ER) | payer OTHER, MEDICARE ==
[~2024-10-24] VITALS: Ht 160 cm; Wt 61.2 kg
[~2024-10-24 08:09] MED LIST changes: +MEMA5TAB16 PO; -MEMA5TAB42 PO; -ROSU10TA28 PO; +ROSU10TA72 PO
[2024-10-24] MEDS: acetaMINOPHEN 500 MG TABLET PO ONE (08:23)
[2024-10-24] MEDS: ketOROlac 15MG/ML VIAL (15MG/ML) IM ONE (08:24)
--- NOTE | 2024-10-24 08:27 | ERN ---
General Chief Complaint: Knee Injury/Swelling Stated Complaint: LT KNEE PAIN Time Seen by MD: 08:14 History of Present Illness Initial Comments 79F BIB EMS for atraumatic L knee pain. Patient reports that when she got up this morning, she felt her left knee "lock" and could not flex it. She forced herself to flex and now has L lateral knee pain. No falls or trauma. NV intact. Moderate pain with movement. no swelling. No other injuries. She's otherwise been in her normal state of health. Allergies: Coded Allergies: gabapentin (Unverified Allergy, Unknown, 08/06/21) solifenacin (Unverified Allergy, Unknown, 08/06/21) hydrocodone (Unverified Adverse Reaction, Severe, NAUSEA/VOMITIMG, 02/16/14) Home Meds Active Scripts Colchicine (Colchicine) 0.6 Mg Capsule, 0.6 MG PO BID, #30 CAP Prov:NU GRIGSBY MD 03/18/22 Reported Medications Tolterodine Tartrate (Tolterodine Tartrate ER) 4 Mg Cap.er.24h, 1 CAP PO DAILY 03/18/22 Hydrochlorothiazide (Hydrochlorothiazide) 25 Mg Tablet, 25 MG PO AM, TAB 03/18/22 Donepezil HCl (Donepezil HCl) 5 Mg Tablet, 5 MG PO HS, TAB 03/18/22 Nitroglycerin (Nitroglycerin) 0.4 Mg Tab.subl, 0.4 MG SL x5min prn chest pain PRN for CHEST PAIN, TAB.SL 03/18/22 Memantine HCl (Namenda) 5 Mg Tablet, 5 MG PO DAILY, TAB 03/18/22 Rosuvastatin Calcium (Rosuvastatin Calcium) 10 Mg Tablet, 10 MG PO HS, TAB 03/18/22 Metoprolol Succinate (Metoprolol Succinate) 25 Mg Tab.er.24h, 12.5 MG PO DAILY, TAB 03/18/22 Lisinopril (Lisinopril) 5 Mg Tablet, 5 MG PO BID, TAB 03/18/22 Memantine HCl (Memantine HCl) 5 Mg Tablet, 1 TAB PO DAILY 03/18/22 Past Medical History Past Medical History: Angina, Arthritis, GERD, High Cholesterol, Heart Disease, Hypertension Medical History Other: DIZZINESS, Past Surgical History: Cholecystectomy Social History Social History: Negative, Other ROS Dictation CONSTITUTIONAL: No chills, no fever, no weakness, no diaphoresis, no malaise. HEAD/FACE: No signs of trauma. EENT: No eye pain, no blurred vision, no tearing, no double vision, no ear pain, no ear discharge, no nose pain, no nasal congestion, no throat pain, no throat swelling, no mouth pain. RESPIRATORY: No cough, no orthopnea, no SOB, no stridor, no wheezing. CARDIOVASCULAR: No chest pain, no edema, no palpitations, no syncope. GASTROINTESTINAL/ABDOMINAL: No abdominal pain, no constipation, no diarrhea, no nausea, no vomiting. GENITOURINARY: No abnormal discharge, no dysuria, no frequent urination, no hematuria. No complaints of pain in the genitals. MUSCULOSKELETAL: Atraumatic left knee pain INTEGUMENTARY: No change in color, no change in hair/nails, no dryness, no lesion, no lumps, no rash. NEUROLOGICAL/PSYCH: No anxiety, not depressed, no emotional problem, no headache, no numbness, no pre-existing deficit, no history of seizures, no tremors, no weakness. HEMATOLOGIC/LYMPHATIC: Not anemic, no history of blood clots, no apparent bleeding, no bruising, glands not swollen. All Systems Negative, Except as Noted. Physical Exam Physical Exam Dictation VITAL SIGNS: Reviewed. GENERAL APPEARANCE: Alert, oriented x3, no acute distress. HEAD AND FACE: Non-traumatic. EYES: PERRL, pink conjunctivas, eyelid no trauma, anterior chamber clear. EARS: Pinnas intact and no signs of trauma or erythema. Ear canals clear and no discharge. TMs no erythema. NOSE: No discharge, no bleeding. OROPHARYNX: Mouth normal, teeth no caries, tongue pink. Pharynx clear, no erythema. Tonsils no exudates, no abscesses noted. Mucous membrane moist. NECK: Supple, non-tender, no thyromegaly, no masses, no JVD, no bruits. BREAST: Deferred. CHEST: No tenderness, no crepitus, no paradoxical movement, no retractions. LUNGS: Clear, well-ventilated, symmetric, no rales, no wheezing, no rhonchi, no stridor, good breath sounds bilaterally. HEART: Regular rate, regular rhythm, no murmur, no gallops. VASCULAR: No peripheral edema. ABDOMEN: Soft, positive bowel sounds, nondistended, no guarding, nontender, no rebound, no masses no hepatomegaly, no splenomegaly, no Riojas's sign, no hernias. RECTAL: Deferred. GENITAL: Deferred. NEUROLOGICAL: Normal speech, gross motor function intact, gross sensory function intact. MUSCULOSKELETAL: Neck nontender, full range of motion, back nontender, full range of motion. L knee tenderness lateral area. Pain with flexion and extension. EXTREMITIES: Nontender, full range of motion. SKIN: Color pink, dry, no turgor, no rash, no lacerations, no abrasions, no contusions. LYMPHATICS: Deferred. MDM CC: atraumatic L knee pain Historian: patient, although she has mild baseline dementia. EMS also provided much of the history. Limitations by social determinates of health: none Comorbidities: HTN, DLD, CAD, CKD Ddx: Musculoskeletal type injuries such as meniscal tear osteoarthritis, intra-articular disease, patellofemoral syndrome, bursitis, fracture, gout, infectious process, other VSS L knee XR: arthritis, no obvious fracture. Independently interpreted by me. Treatment in ED: IM toradol, tylenol PO. Patient's knee was placed in a knee brace. She was ambulatory although has not antalgic gait. Since the patient does live alone, I did offer the patient admission for observation and to ensure that she does not have any falls, but the patient calls or sister reports that she prefers to go home and she has care at home. ED Course Orders Procedure Category Date Status Time Knee 3vws Lt RAD 10/24/24 Resulted 08:14 Acetaminophen 500mg PHA 10/24/24 Complete Tab (Tylenol 500mg T 08:30 Ketorolac PHA 10/24/24 Complete Tromethamine 15mg/Ml 08:30 Current Medications Medications (Trade) Dose Ordered Sig/Alyssa Route PRN Reason Start Time Stop Time Status Last Admin Dose Admin Acetaminophen (TYLenol 500MG TAB) 1,000 mg ONCE ONCE PO 10/24/24 08:30 10/24/24 08:31 DC 10/24/24 08:23 Ketorolac Tromethamine (toRADol) 15 mg ONCE ONCE IM 10/24/24 08:30 10/24/24 08:31 DC 10/24/24 08:24 Vital Signs Date Time Temp Pulse Resp B/P (MAP) Pulse Ox O2 Delivery O2 Flow Rate FiO2 10/24/24 08:15 98.2 92 16 176/87 98 Room Air* 0 21 10/24/24 08:12 97.9 86 20 154/95 99 Room Air 0 DX & DISP Disposition: Discharge Departure Impression: Primary Impression: Left knee injury Condition: Stable Scripts Meloxicam (Meloxicam) 15 Mg Tablet 15 MG PO DAILY PRN for PAIN for 10 Days, #10 TAB Prov: CARRIE DORAN DO 10/24/24 Additional Instructions: Your x-ray does not show any fractures or bony abnormalities. Based on the description of your pain, I suspect soft tissue injury, possibly a meniscus injury. Wear a compression device such as an Dandy wrap. Ice your knee for 20 minutes at least 3 times per day for the next few days. Elevate your knee as much as possible. I have prescribed meloxicam, which is a nonsteroidal anti-inflammatory pain medication. Please take this once per day for the next 5-7 days. Please follow up with your primary doctor or an orthopedist for further treatment and evaluation. Please return to the emergency department if you have any concerns. Referrals: IVANIA HAMILTON MD (PCP) CARRIE DORAN DO October 24, 2024 08:27
--- NOTE | 2024-10-24 10:00 | NUR ---
PATIENT VERBALIZES SHE DOES NOT WANT TO BE ADMITTED INTO THE HOSPITAL. PATIENT EDUCATION PROVIDED ON FALL RISKS, AND FALL RISK PREVENTION. PATIENT VERBALIZES UNDERSTANDING. WHEN PATIENT ASKED IF THERE WAS SOMEONE TO CAR FOR HER AT HOME PATIENT STATES"I'M ON THE LIST, BUT I HAVE A NEIGHBOR THAT COMES AND HELPS ME".
--- NOTE | 2024-10-24 10:50 | HMCIMG ---
Exam Type: KNEE 3VWS LT Clinical Information: pain, injury Comparison: None Findings: There are degenerative changes with narrowing of the medial femorotibial joint space, with subchondral sclerosis. No acute fractures are seen. The soft tissues appear normal. Impression: Degenerative changes medial compartment.
--- NOTE | 2024-10-24 11:00 | NUR ---
ANDREEA BALES CONSULTS WITH PATIENT AND STATES THE BENEFITS OF BEING ADMITTED VS. OUTPATIENT. PATIENT RECOMMENDATIONS TO ADMIT WERE REFUSED BY PATIENT. PATIENT STATES " I DON'T WANT TO STAY IN THE HOSPITAL I WANT TO GO HOME I'M JUST GOING TO DO THE SAME THING HERE".
[2024-10-24] MEDS ORDERED: MELO-108 PO (11:17)
[2024-10-24 11:24] VITALS: BP 170/80; PULSE 90; RESP 16; TEMP 98; O2SAT 99
--- NOTE | 2024-10-24 11:26 | NUR ---
JO ANN XIONG SISTER IN LAW AT BEDSIDE. PATIENT VERBALIZES SHE WANTS TO GO HOME AND IS READY FOR HER DISCHARGE PAPERS. PATIENT'S SISTES IN LAW JO ANN XIONG VERBALIZES TRANSPORT RESPONSIBILITY.
--- NOTE | 2024-10-24 11:30 | NUR ---
NIR WRAP PLACED ON LEFT KNEE CAP REFILL IN TACT SENSATION PRESENT PULSE 2+
--- NOTE | 2024-10-24 11:45 | NUR ---
ASSISTIVE DEVICE OFFERED, PATIENT STATES " I HAVE SEVERAL WALKERS AND CANES AT HOME", AND REFUSED ASSISSTIVE DEVICE.
--- NOTE | 2024-10-24 12:03 | NUR ---
PATIENT ASSISSTED TO HER SISTER IN LAWS POV, PATIENT OFFERED ASSISTANCE TO TRANSFER FROM THE WHEEL CHAIR BY ZAK JARAMILLO PATIENT INITIALLY REFUSED HELP. FAMILY PROVIDED WITH EDUCATION OF POSSIBLE RISKS.
== END 2024-10-24 12:00 | disposition home or self-care (01) ==
LOC: EDH 08:09
DX: S89.92XA Unspecified injury of left lower leg, initial encounter (principal); M19.90 Unspecified osteoarthritis, unspecified site; K21.9 Gastro-esophageal reflux disease without esophagitis; E78.00 Pure hypercholesterolemia, unspecified; I10 Essential (primary) hypertension; Z79.899 Other long term (current) drug therapy; Z88.5 Allergy status to narcotic agent; Z88.8 Allergy status to other drugs, medicaments and biological substances; N18.9 Chronic kidney disease, unspecified; Z90.49 Acquired absence of other specified parts of digestive tract; I12.9 Hypertensive chronic kidney disease with stage 1 through stage 4 chronic kidney disease, or unspecified chronic kidney disease; I25.10 Atherosclerotic heart disease of native coronary artery without angina pectoris; W18.39XA Other fall on same level, initial encounter; Y93.89 Activity, other specified; Y92.89 Other specified places as the place of occurrence of the external cause; Y99.8 Other external cause status
CPT/HCPCS: 99283; 73562; 96372; J1885